=== PATIENT | female | born 1970 | race African-American/Black ===

== ENCOUNTER 2017-11-28 13:26 | Emergency (ER) | payer BC ==
[~2017-11-28] VITALS: Ht 165.1 cm; Wt 89.7 kg
[2017-11-28] MEDS ORDERED: PREDNISONE20 MG PO (15:01)
[2017-11-28] MEDS ORDERED: MOTRIN600 MG PO (15:01)
[2017-11-28] MEDS ORDERED: VALIUM2 MG PO (15:01)
[2017-11-28 15:21] VITALS: BP 172/110
== END 2017-11-28 15:22 | disposition home or self-care (01) ==
LOC: EME 13:26
DX: M54.41 Lumbago with sciatica, right side (principal); Z87.891 Personal history of nicotine dependence
CPT/HCPCS: 99281; 99284; J1885